=== PATIENT | male | born 1990 | race Hispanic/Latino ===

== ENCOUNTER 2018-06-03 15:57 | Emergency (ER) | payer SELFPAY | END 2018-06-03 16:08 | disposition left against medical advice (07) | DRG 951 | LOC: ED 15:57 → LWOBS 16:08 | DX: Z91.19 Patient's noncompliance with other medical treatment and regimen (principal) ==

== ENCOUNTER 2019-04-19 23:35 | Emergency (ER) | payer SELFPAY ==
[~2019-04-19] VITALS: Ht 165.1 cm; Wt 72.7 kg
[2019-04-19] MEDS ORDERED: AMOXICILLIN500 MG PO (23:52)
[2019-04-19 23:59] VITALS: BP 129/82
== END 2019-04-20 00:11 | disposition home or self-care (01) | DRG 153 ==
LOC: ED 23:35
DX: J03.90 Acute tonsillitis, unspecified (principal); F17.210 Nicotine dependence, cigarettes, uncomplicated